=== PATIENT | male | born 1935 | race Caucasian/White ===

== ENCOUNTER 2023-05-16 16:52 | Inpatient (IN) | payer MEDICARE ==
[2023-05-16 18:46] VITALS: BMI 25.7
[2023-05-16] MEDS ORDERED: Acetaminophen 325 MG TAB PO PRN (19:36)
[2023-05-16] MEDS ORDERED: Ondansetron ODT 4 MG TAB PO PRN (19:36)
[2023-05-16] MEDS ORDERED: Ondansetron PF 4 MG/2 ML Vial IVP PRN (19:36)
[2023-05-16] MEDS ORDERED: Morphine 2 MG/ML VIAL SLOW IVP PRN (19:43)
[2023-05-16] MEDS: Famotidine 20 MG TAB PO SCH (20:37)
[2023-05-16] MEDS ORDERED: Donepezil HCl 5 MG TAB PO SCH (22:45)
[2023-05-16] MEDS ORDERED: Doxepin HCl 10 MG CAP PO SCH (22:45)
[2023-05-16] MEDS: Lorazepam 0.5 MG TAB PO PRN (23:44)
[2023-05-17] MEDS: Morphine 4 MG/ML VIAL SLOW IVP PRN ×2 (03:43→11:31)
[2023-05-17 08:43] LABS: #Eosinphils 0.1 thou/uL (0.0-0.7); #Monocytes 0.6 thou/uL (0.11-0.59); #Neutrophils 3.3 thou/uL (1.40-6.50); %Basophils 0.6 % (0.0-1.0); %Eosinophils 2.3 % (0.0-10.0); %Lymphocytes 21.2 % (21.0-51.0); %Monocytes 11.5 % (0.0-10.0); %Neutrophils 64.2 % (42.0-75.0); Hematocrit 34.7 % (42.0-52.0); Hemoglobin 10.9 g/dL (14.0-18.0); Mean Corpuscular HGB CONC 31.4 g/dL (32.0-36.0); Mean Corpuscular Hemoglobin 34.2 pg (27.0-31.0); Mean Corpuscular Volume 108.8 fl (78.0-98.0); Mean Platelet Volume 10.7 fL (7.4-10.4); Platelet Count 216 10x3/uL (130-400); RBC Distribution Width 14.3 % (11.5-14.5); Red Blood Cell (RBC) Count 3.19 mill/uL (4.70-6.10); White Blood Cell (WBC) Count 5.1 10x3/uL (4.8-10.8)
[2023-05-17 08:57] LABS: INR-International Normal Ratio 1.1; Prothrombin Time 14.3 sec (12.0-14.7)
[2023-05-17 08:58] LABS: PTT 31.6 sec (22.9-36.1)
[2023-05-17] MEDS: Sertraline 25 MG TAB PO SCH (09:04)
[2023-05-17] MEDS: Pantoprazole 40 MG VIAL IVP SCH (09:04)
[2023-05-17] MEDS: Famotidine 20 MG TAB PO SCH ×2 (09:04→19:57)
[2023-05-17 09:06] LABS: Anion Gap 13 mmol/L (10-20); BUN (Urea Nitrogen) 24 mg/dL (8.4-25.7); Calc. Creatinine Clearance 43 mL/min (70-130); Calcium 8.6 mg/dL (7.8-10.44); Carbon Dioxide 24 mmol/L (23-31); Chloride 105 mmol/L (98-107); Estimated GFR 46; Glucose 87 mg/dL (83-110); Iron 62 ug/dL (65-175); Iron Binding Capacity, Total 193 mcg/dL (261-462); Sodium 137 mmol/L (136-145)
[2023-05-17] MEDS ORDERED: GoLYTELY 4,000 ml Bottle PO SCH (19:00)
[2023-05-17] MEDS: Lorazepam 0.5 MG TAB PO PRN (19:57)
[2023-05-17] MEDS: Donepezil HCl 5 MG TAB PO SCH (19:57)
[2023-05-17] MEDS: Doxepin HCl 10 MG CAP PO SCH (19:58)
[2023-05-18 07:34] LABS: #Eosinphils 0.1 thou/uL (0.0-0.7); #Monocytes 0.6 thou/uL (0.11-0.59); #Neutrophils 2.8 thou/uL (1.40-6.50); %Basophils 0.6 % (0.0-1.0); %Eosinophils 2.3 % (0.0-10.0); %Lymphocytes 24.7 % (21.0-51.0); %Monocytes 13.6 % (0.0-10.0); %Neutrophils 58.6 % (42.0-75.0); Hematocrit 31.9 % (42.0-52.0); Hemoglobin 9.9 g/dL (14.0-18.0); Mean Corpuscular Hemoglobin 33.8 pg (27.0-31.0); Mean Corpuscular Volume 108.9 fl (78.0-98.0); Mean Platelet Volume 10.7 fL (7.4-10.4); Platelet Count 236 10x3/uL (130-400); RBC Distribution Width 14.4 % (11.5-14.5); Red Blood Cell (RBC) Count 2.93 mill/uL (4.70-6.10); White Blood Cell (WBC) Count 4.7 10x3/uL (4.8-10.8)
[2023-05-18 07:56] LABS: Anion Gap 14 mmol/L (10-20); BUN (Urea Nitrogen) 26 mg/dL (8.4-25.7); Calc. Creatinine Clearance 45 mL/min (70-130); Calcium 8.1 mg/dL (7.8-10.44); Carbon Dioxide 26 mmol/L (23-31); Chloride 104 mmol/L (98-107); Estimated GFR 49; Glucose 87 mg/dL (83-110); Potassium 4.7 mmol/L (3.5-5.1); Sodium 139 mmol/L (136-145)
[2023-05-18] MEDS: Famotidine 20 MG TAB PO SCH ×2 (08:40→22:11)
[2023-05-18] MEDS: Sertraline 25 MG TAB PO SCH (08:40)
[2023-05-18] MEDS: Pantoprazole 40 MG VIAL IVP SCH (08:44)
[2023-05-18] MEDS ORDERED: Lidocaine 1% PF 5 ML VIAL ONE (12:05)
[2023-05-18] MEDS ORDERED: PROPOFOL 20 ML ONE ×2 (12:05→12:40)
[2023-05-18] MEDS ORDERED: Promethazine HCl 25 MG/ML VIAL IM PRN (12:48)
[2023-05-18] MEDS: Lorazepam 0.5 MG TAB PO PRN (22:11)
[2023-05-18] MEDS: Donepezil HCl 5 MG TAB PO SCH (22:11)
[2023-05-18] MEDS: Doxepin HCl 10 MG CAP PO SCH (22:11)
[2023-05-18] MEDS: Morphine 4 MG/ML VIAL SLOW IVP PRN (22:15)
[2023-05-19 05:15] LABS: #Eosinphils 0.2 thou/uL (0.0-0.7); #Monocytes 0.7 thou/uL (0.11-0.59); #Neutrophils 4.5 thou/uL (1.40-6.50); %Basophils 0.4 % (0.0-1.0); %Eosinophils 2.4 % (0.0-10.0); %Lymphocytes 20.1 % (21.0-51.0); %Monocytes 10.8 % (0.0-10.0); Hematocrit 30.8 % (42.0-52.0); Hemoglobin 9.7 g/dL (14.0-18.0); Mean Corpuscular HGB CONC 31.5 g/dL (32.0-36.0); Mean Corpuscular Hemoglobin 33.9 pg (27.0-31.0); Mean Corpuscular Volume 107.7 fl (78.0-98.0); Mean Platelet Volume 10.2 fL (7.4-10.4); Platelet Count 248 10x3/uL (130-400); RBC Distribution Width 14.2 % (11.5-14.5); Red Blood Cell (RBC) Count 2.86 mill/uL (4.70-6.10); White Blood Cell (WBC) Count 6.8 10x3/uL (4.8-10.8)
[2023-05-19 05:51] LABS: Anion Gap 13 mmol/L (10-20); BUN (Urea Nitrogen) 23 mg/dL (8.4-25.7); Calc. Creatinine Clearance 45 mL/min (70-130); Calcium 8.1 mg/dL (7.8-10.44); Carbon Dioxide 23 mmol/L (23-31); Chloride 108 mmol/L (98-107); Estimated GFR 49; Glucose 86 mg/dL (83-110); Potassium 4.4 mmol/L (3.5-5.1); Sodium 140 mmol/L (136-145)
[2023-05-19 09:31] VITALS: BP 134/73; TEMP 97.4
[2023-05-19] MEDS: Sertraline 25 MG TAB PO SCH (09:51)
[2023-05-19] MEDS: Famotidine 20 MG TAB PO SCH (09:52)
[2023-05-19] MEDS: Pantoprazole 40 MG VIAL IVP SCH (10:27)
== END 2023-05-19 12:28 | disposition hospice, home (50) | DRG 436 ==
LOC: MSONC 18:27 → OBSVTOIN 19:30 → MSONC 05-18 10:21
PROVIDERS: ADMIT Hospitalist; ATTEND Internal Medicine
PROC: 0DBK8ZZ Excision of Ascending Colon, Via Natural or Artificial Opening Endoscopic (ICD-10-PCS; principal; 2023-05-18)
PROC: 0DBL8ZZ Excision of Transverse Colon, Via Natural or Artificial Opening Endoscopic (ICD-10-PCS; 2023-05-18)
PROC: 0DBP8ZZ Excision of Rectum, Via Natural or Artificial Opening Endoscopic (ICD-10-PCS; 2023-05-18)
PROC: 0DBM8ZZ Excision of Descending Colon, Via Natural or Artificial Opening Endoscopic (ICD-10-PCS; 2023-05-18)
DX: C78.7 Secondary malignant neoplasm of liver and intrahepatic bile duct (principal); F03.94 Unspecified dementia, unspecified severity, with anxiety; J98.11 Atelectasis; K63.5 Polyp of colon; K62.1 Rectal polyp; K57.30 Diverticulosis of large intestine without perforation or abscess without bleeding; K21.9 Gastro-esophageal reflux disease without esophagitis; K62.9 Disease of anus and rectum, unspecified; F10.90 Alcohol use, unspecified, uncomplicated; F31.9 Bipolar disorder, unspecified; Z96.652 Presence of left artificial knee joint; K63.89 Other specified diseases of intestine; H53.9 Unspecified visual disturbance; D32.0 Benign neoplasm of cerebral meninges; Z79.899 Other long term (current) drug therapy
CPT/HCPCS: 36415; 70551; 80048; 82728; 83540; 83550; 85025; 85610; 85730; 88305; C9113; J2270; J2272; J2704

== ENCOUNTER 2023-06-15 20:34 | Inpatient (IN) | payer MEDICARE ==
[2023-06-15] MEDS ORDERED: Acetaminophen 325 MG TAB PO PRN (22:19)
[2023-06-15] MEDS ORDERED: Dextrose 50% Abboject 50 ML SYRINGE SLOW IVP PRN (22:19)
[2023-06-15] MEDS ORDERED: Ondansetron ODT 4 MG TAB PO PRN (22:19)
[2023-06-15] MEDS ORDERED: Glucagon 1 MG/ML KIT IM PRN (22:19)
[2023-06-15] MEDS ORDERED: Dextrose 5% in Water 1,000 ML IV PRN (22:19)
[2023-06-15] MEDS: D5 1/2 NS w/20 mEq KCL 1,000 ML IV SCH (23:02)
[2023-06-16] MEDS: Morphine 2 MG/ML VIAL SLOW IVP PRN (01:52)
[2023-06-16 04:40] LABS: #Eosinphils 0.1 thou/uL (0.0-0.7); #Monocytes 0.9 thou/uL (0.11-0.59); #Neutrophils 6.3 thou/uL (1.40-6.50); %Basophils 0.4 % (0.0-1.0); %Eosinophils 0.6 % (0.0-10.0); %Lymphocytes 12.4 % (21.0-51.0); %Neutrophils 75.4 % (42.0-75.0); Hematocrit 31.4 % (42.0-52.0); Hemoglobin 10.1 g/dL (14.0-18.0); Mean Corpuscular HGB CONC 32.2 g/dL (32.0-36.0); Mean Corpuscular Hemoglobin 33.2 pg (27.0-31.0); Mean Corpuscular Volume 103.3 fl (78.0-98.0); Mean Platelet Volume 11.1 fL (7.4-10.4); Platelet Count 199 10x3/uL (130-400); RBC Distribution Width 15.6 % (11.5-14.5); Red Blood Cell (RBC) Count 3.04 mill/uL (4.70-6.10); White Blood Cell (WBC) Count 8.4 10x3/uL (4.8-10.8)
[2023-06-16 05:00] LABS: Anion Gap 13 mmol/L (10-20); BUN (Urea Nitrogen) 22 mg/dL (8.4-25.7); Calc. Creatinine Clearance 47 mL/min (70-130); Calcium 8.5 mg/dL (7.8-10.44); Carbon Dioxide 22 mmol/L (23-31); Chloride 105 mmol/L (98-107); Estimated GFR 56; Glucose 85 mg/dL (83-110); Potassium 4.9 mmol/L (3.5-5.1); Sodium 135 mmol/L (136-145)
[2023-06-16] MEDS ORDERED: HYDROcodone/Acetaminophen 7.5/325 mg Tablet PO PRN (09:05)
[2023-06-16] MEDS: HYDROcodone/Acetaminophen 5/325 mg Tablet PO SCH (10:07)
[2023-06-16] MEDS: FLU VACC QS2023(65UP)/MF59C/PF 60 MCG/0.5 ML SYRINGE IM ONE (10:09)
[2023-06-16] MEDS: Sertraline 100 MG TAB PO SCH (10:10)
[2023-06-16] MEDS: Lorazepam 0.5 MG TAB PO SCH (21:38)
[2023-06-16] MEDS: Donepezil HCl 5 MG TAB PO SCH (21:38)
[2023-06-16] MEDS: Doxepin HCl 10 MG CAP PO SCH (21:38)
[2023-06-17] MEDS ORDERED: Acetaminophen 500 MG TAB PO PRN (07:12)
[2023-06-17] MEDS ORDERED: Acetaminophen 325 MG TAB PO SCH (07:15)
[2023-06-17] MEDS: Gabapentin 100 MG CAP PO SCH (10:02)
[2023-06-17] MEDS: HYDROcodone/Acetaminophen 5/325 mg Tablet PO SCH (11:41)
[2023-06-18 05:41] LABS: #Eosinphils 0.1 thou/uL (0.0-0.7); #Monocytes 0.8 thou/uL (0.11-0.59); #Neutrophils 3.7 thou/uL (1.40-6.50); %Basophils 0.5 % (0.0-1.0); %Eosinophils 2.1 % (0.0-10.0); %Lymphocytes 19.3 % (21.0-51.0); %Monocytes 13.3 % (0.0-10.0); %Neutrophils 64.5 % (42.0-75.0); Hematocrit 30.9 % (42.0-52.0); Hemoglobin 9.9 g/dL (14.0-18.0); Mean Corpuscular Hemoglobin 34.4 pg (27.0-31.0); Mean Corpuscular Volume 107.3 fl (78.0-98.0); Mean Platelet Volume 10.6 fL (7.4-10.4); Platelet Count 218 10x3/uL (130-400); RBC Distribution Width 15.7 % (11.5-14.5); Red Blood Cell (RBC) Count 2.88 mill/uL (4.70-6.10); White Blood Cell (WBC) Count 5.8 10x3/uL (4.8-10.8)
[2023-06-18 06:01] LABS: Anion Gap 14 mmol/L (10-20); BUN (Urea Nitrogen) 25 mg/dL (8.4-25.7); Calc. Creatinine Clearance 46 mL/min (70-130); Calcium 8.5 mg/dL (7.8-10.44); Carbon Dioxide 20 mmol/L (23-31); Chloride 105 mmol/L (98-107); Estimated GFR 56; Glucose 105 mg/dL (83-110); Potassium 4.6 mmol/L (3.5-5.1); Sodium 134 mmol/L (136-145)
[2023-06-18] MEDS: Enoxaparin 40 MG (0.4 mL) SYRINGE SC SCH (08:24)
[2023-06-20 05:04] LABS: #Eosinphils 0.2 thou/uL (0.0-0.7); #Monocytes 0.8 thou/uL (0.11-0.59); %Basophils 0.6 % (0.0-1.0); %Eosinophils 2.1 % (0.0-10.0); %Lymphocytes 14.4 % (21.0-51.0); %Monocytes 11.2 % (0.0-10.0); %Neutrophils 71.3 % (42.0-75.0); Hematocrit 32.8 % (42.0-52.0); Hemoglobin 10.4 g/dL (14.0-18.0); Mean Corpuscular HGB CONC 31.7 g/dL (32.0-36.0); Mean Corpuscular Volume 107.2 fl (78.0-98.0); Mean Platelet Volume 10.6 fL (7.4-10.4); Platelet Count 221 10x3/uL (130-400); RBC Distribution Width 15.4 % (11.5-14.5); Red Blood Cell (RBC) Count 3.06 mill/uL (4.70-6.10)
[2023-06-20 05:38] LABS: Anion Gap 12 mmol/L (10-20); BUN (Urea Nitrogen) 33 mg/dL (8.4-25.7); Calc. Creatinine Clearance 41 mL/min (70-130); Carbon Dioxide 25 mmol/L (23-31); Chloride 103 mmol/L (98-107); Estimated GFR 49; Glucose 105 mg/dL (83-110); Potassium 4.9 mmol/L (3.5-5.1); Sodium 135 mmol/L (136-145)
[2023-06-20] MEDS: Sodium Chloride 0.9% 500 ML IV SCH (08:39)
[2023-06-20 14:30] LABS: #Eosinphils 0.1 thou/uL (0.0-0.7); #Monocytes 0.6 thou/uL (0.11-0.59); #Neutrophils 4.7 thou/uL (1.40-6.50); %Basophils 0.2 % (0.0-1.0); %Eosinophils 1.3 % (0.0-10.0); %Lymphocytes 11.1 % (21.0-51.0); %Monocytes 10.1 % (0.0-10.0); %Neutrophils 77.1 % (42.0-75.0); Hematocrit 31.8 % (42.0-52.0); Hemoglobin 10.3 g/dL (14.0-18.0); Mean Corpuscular HGB CONC 32.4 g/dL (32.0-36.0); Mean Corpuscular Hemoglobin 34.3 pg (27.0-31.0); Mean Platelet Volume 10.9 fL (7.4-10.4); Platelet Count 214 10x3/uL (130-400); RBC Distribution Width 15.3 % (11.5-14.5); White Blood Cell (WBC) Count 6.1 10x3/uL (4.8-10.8)
[2023-06-20 14:52] LABS: Anion Gap 13 mmol/L (10-20); BUN (Urea Nitrogen) 32 mg/dL (8.4-25.7); Calc. Creatinine Clearance 49 mL/min (70-130); Calcium 8.6 mg/dL (7.8-10.44); Carbon Dioxide 22 mmol/L (23-31); Chloride 104 mmol/L (98-107); Estimated GFR 59; Glucose 103 mg/dL (83-110); Magnesium 1.9 mg/dL (1.6-2.6); Phosphorus 3.3 mg/dL (2.3-4.7); Potassium 4.7 mmol/L (3.5-5.1); Sodium 134 mmol/L (136-145)
[2023-06-20 14:57] LABS: Troponin I Less than 0.010 ng/mL (< 0.028)
[2023-06-21] MEDS: Tamsulosin HCl 0.4 MG CAP PO SCH (19:42)
[2023-06-22] MEDS: Lactulose 20 GM (30 mL) UDCUP PO SCH (16:57)
[2023-06-22] MEDS: Senokot S 8.6-50 MG TAB PO SCH (21:04)
[2023-06-23] MEDS: Naloxegol 12.5 MG TAB PO SCH (05:58)
[2023-06-23] MEDS: Polyethylene Glycol 3350 17 GM Packet PO SCH (09:41)
[2023-06-23 12:46] VITALS: BMI 24.3
[2023-06-24 15:43] VITALS: BP 117/75; TEMP 97.7
== END 2023-06-24 17:37 | disposition home or self-care (01) | DRG 86 ==
LOC: SURG A 21:00 → OBSVTOIN 06-16 09:47 → SURG A 06-16 20:29
PROVIDERS: ADMIT Student in an Organized Health Care Education/Training Program; ATTEND Student in an Organized Health Care Education/Training Program
DX: S02.113A Unspecified occipital condyle fracture, initial encounter for closed fracture (principal); S12.100A Unspecified displaced fracture of second cervical vertebra, initial encounter for closed fracture; S22.43XA Multiple fractures of ribs, bilateral, initial encounter for closed fracture; S12.200A Unspecified displaced fracture of third cervical vertebra, initial encounter for closed fracture; S22.32XA Fracture of one rib, left side, initial encounter for closed fracture; Z66 Do not resuscitate; Z51.5 Encounter for palliative care; F03.90 Unspecified dementia, unspecified severity, without behavioral disturbance, psychotic disturbance, mood disturbance, and anxiety; K21.9 Gastro-esophageal reflux disease without esophagitis; F41.9 Anxiety disorder, unspecified; F31.9 Bipolar disorder, unspecified; D32.9 Benign neoplasm of meninges, unspecified; W19.XXXA Unspecified fall, initial encounter; R33.9 Retention of urine, unspecified; G89.11 Acute pain due to trauma; Z79.899 Other long term (current) drug therapy; W06.XXXA Fall from bed, initial encounter
CPT/HCPCS: 36415; 70450; 70498; 71045; 71250; 72125; 80048; 80053; 83735; 84100; 84484; 85025; 93005; 93010; J1650; J2272; J3480; J7030